=== PATIENT | male | born 1990 | race Two or more races ===

== ENCOUNTER 2018-06-22 11:33 | Emergency (ER) | payer SELFPAY ==
[~2018-06-22] VITALS: Ht 170.2 cm; Wt 77.1 kg
[2018-06-22] MEDS ORDERED: LORAZEPAM 0.5 MG TABLET PO ONE (11:45)
[2018-06-22] MEDS ORDERED: LORAZEPAM 1 MG TABLET ONE (11:49)
--- NOTE | 2018-06-22 11:56 | NUR ---
Pt. BIB [id number] and placed in room 4B, presents w/ tremors, superficial wound to nose and forehead, states he "fell last week", states he last drank alcohol "last night", lab in to draw blood, pt. taken for CT,
[2018-06-22 11:59] LABS: BASOPHILS # (AUTO) 0.1 K/uL (0.0-8.0); BASOPHILS % (AUTO) 1.8 % (0.0-2.0); EOSINOPHILS % (AUTO) 0.3 % (0.0-7.0); LYMPHOCYTES # (AUTO) 0.7 K/uL (20.0-40.0); LYMPHOCYTES % (AUTO) 17.2 % (20.5-51.5); MEAN CORPUSCULAR HEMOGLOBIN 25.1 uug (23.8-33.4); MEAN CORPUSCULAR HGB CONC 32 g/dL (32.5-36.3); MEAN CORPUSCULAR VOLUME 77.6 fL (73.0-96.2); MONOCYTES # (AUTO) 0.4 K/uL (2.0-10.0); MONOCYTES % (AUTO) 10.5 % (0.0-11.0); NEUTROPHILS # (AUTO) 2.9 K/uL (1.8-8.9); NEUTROPHILS % (AUTO) 70.2 % (38.5-71.5); PLATELET COUNT (AUTO) 173 K/uL (152-348); RED BLOOD CELL COUNT(AUTO) 3.99 MIL/uL (4.06-5.63); WHITE BLOOD COUNT (AUTO) 4.1 K/uL (3.6-10.2)
[2018-06-22 12:03] LABS: CARBON DIOXIDE 24 mmol/L (21-32); CHLORIDE 95 mmol/L (98-107); CREATININE 0.9 mg/dL (0.6-1.3); GLUCOSE 93 mg/dL (74-106); UREA NITROGEN, BLOOD 3 mg/dL (7-18)
[2018-06-22 12:09] LABS: ETHANOL 39 MG/DL (0-0)
--- NOTE | 2018-06-22 12:10 | NUR ---
Pt. back from CT
[2018-06-22 12:16] LABS: ALANINE AMINOTRANSFERASE 160 U/L (16-63); ALKALINE PHOSPHATASE 93 U/L (50-136); ASPARTATE AMINOTRANSFERASE 345 U/L (15-37); BILIRUBIN,DIRECT 0.2 mg/dL (0.0-0.2); BILIRUBIN,TOTAL 0.7 mg/dL (0.2-1.0); TOTAL PROTEIN, SERUM 7.5 g/dL (6.4-8.2)
[2018-06-22 12:17] LABS: ACETAMINOPHEN < 2.0 ug/mL (10-30)
[2018-06-22 12:30] LABS: *BLOOD, URINE Trace-lysed (NEGATIVE); *CLARITY,URINE SLIGHTLY CLOUDY (CLEAR); *COLOR,URINE DARK YELLOW (YELLOW); *KETONES,URINE 3+ (NEGATIVE); *PROTEIN,URINE 2+ (NEGATIVE); LEUKOCYTE ESTERASE ,URINE NEGATIVE (NEGATIVE); NITRITE, URINE NEGATIVE (NEGATIVE); UGLUCOSE NEGATIVE (NEGATIVE)
--- NOTE | 2018-06-22 12:36 | NUR ---
Patient discharged to home in stable conditon. Written and verbal after care instructions given. Patient verbalizes understanding of instructions.
[2018-06-22 12:39] VITALS: BP 145/89
[2018-06-22 12:42] LABS: *AMPHETAMINE, URINE NEGATIVE (NEGATIVE); *BARBITURATE, URINE NEGATIVE (NEGATIVE); *CANNABINOID, URINE POSITIVE (NEGATIVE); *COCCAINE, URINE NEGATIVE (NEGATIVE); *OPIATE, URINE NEGATIVE (NEGATIVE); *PHENCYCLIDINE SCREEN,URINE NEGATIVE (NEGATIVE)
[2018-06-22 12:48] LABS: *BILIRUBIN,URIN 1+ (NEGATIVE)
[2018-06-22 12:50] LABS: BACTERIA,URINE NONE SEEN /HPF (NONE SEEN); SQUAMOUS EPITHELIAL CELL,UR NONE SEEN /HPF (NONE SEEN); WBC,URINE 0-3 /HPF (0-3)
[2018-06-22 12:51] LABS: TRIPLE PHOSPHATE CRYSTAL,UR MODERATE /HPF (NONE SEEN)
== END 2018-06-22 12:45 | disposition home or self-care (01) ==
LOC: ER 11:34
DX: F10.239 Alcohol dependence with withdrawal, unspecified (principal)
CPT/HCPCS: 36415; 70450; 80048; 80076; 80307; 81001; 85025; 99285; G0480 ×2; G0481; A4663